=== PATIENT | female | born 1960 | race Caucasian/White ===

== ENCOUNTER 2021-01-06 11:00 | Emergency (ER) | payer BC ==
[2021-01-06 11:12] VITALS: TEMP 97.9
[2021-01-06] MEDS ORDERED: RABIES IMMUNE GLOB 300 UNIT/ML 1 ML VIAL IM ONE (11:37)
[2021-01-06] MEDS ORDERED: RABIES VACCINE (PCEC) 2.5 UNIT KIT IM ONE (11:37)
[2021-01-06] MEDS ORDERED: RABIES IMMUNE GLOB 300 UNIT/ML 5 ML VIAL IM ONE (12:00)
--- NOTE | 2021-01-06 12:17 | ED ---
Animal Bite HPI - General Chief Complaint: Animal Bite Stated Complaint: Rabies shot Time Seen by Provider: 01/06/21 11:16 Source: patient, RN notes reviewed Mode of arrival: ambulatory Limitations: no limitations - History of Present Illness Initial Comments: Patient is a 60-year-old female that presents to the emergency department due to exposure to possible rabies. She he backed inside of their house and were unable to capture it to get sent for testing. She is unsure if she was bitten or scratched at this point. She was admitted to get the rabies vaccination. She denied any issues or complaints at this time. She was a well-appearing 60-year-old female in no apparent distress or pain. She denied any chest pain shortness breath headache nausea vomiting diarrhea constipation fever fatigue chills. - Related Data Allergies Allergy/AdvReac Type Severity Reaction Status Date / Time No Known Allergies Allergy Verified 01/06/21 11:12 Review of Systems ROS Statement: Those systems with pertinent positive or pertinent negative responses have been documented in the HPI. ROS Other: All systems not noted in ROS Statement are negative. 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 Absent: scleral icterus, conjunctival injection, periorbital swelling Neck exam: Present: normal inspection Respiratory exam: Present: normal lung sounds bilaterally. Absent: respiratory distress, wheezes, rales, rhonchi, stridor Cardiovascular Exam: Present: regular rate, normal rhythm, normal heart sounds. Absent: systolic murmur, diastolic murmur, rubs, gallop, clicks GI/Abdominal exam: Present: soft, normal bowel sounds. Absent: distended, tenderness, guarding, rebound, rigid Extremities exam: Present: normal inspection, full ROM, normal capillary refill. Absent: tenderness, pedal edema, joint swelling, calf tenderness Neurological exam: Present: alert, oriented X3 Psychiatric exam: Present: normal affect, normal mood Skin exam: Present: warm, dry, intact, normal color. Absent: rash Course Vital Signs 01/06/21 11:08 Temperature 97.9 F Pulse Rate 69 Respiratory 16 Rate Blood Pressure 118/78 O2 Sat by Pulse 98 Oximetry Medical Decision Making - Medical Decision Making If the 10-year-old female with rabies exposure. Rabies vaccine and immunoglobulin ordered. Patient can discharge home with follow-up on day 3,7 and 14 for repeat i njections. Case discussed with Dr. Mahajan, patient can discharge home. Disposition Clinical Impression: Rabies contact Disposition: HOME SELF-CARE Condition: Stable Instructions (If sedation given, give patient instructions): Animal Bite (ED) Additional Instructions: Please return to the Emergency Department if symptoms worsen or any other concerns. Please return on 01/09/2021, 01/13/2021, 01/20/2021 for repeat injection. Is patient prescribed a controlled substance at d/c from ED?: No Referrals: Nonstaff,Physician [Primary Care Provider] - 1-2 days Time of Disposition: 12:17
[2021-01-06 12:57] VITALS: BP 122/74; PULSE 70; RESP 18
== END 2021-01-06 12:51 | disposition home or self-care (01) ==
LOC: EC 11:00
DX: Z20.3 Contact with and (suspected) exposure to rabies (principal)
CPT/HCPCS: 90375; 90471; 90472; 90675; 96372; 99283